=== PATIENT | female | born 1945 | race Caucasian/White ===

== ENCOUNTER → 2017-04-05 | Outpatient (CLI) | payer OTHER | LOC: BHFA 13:00 | PROVIDERS: ATTEND Internal Medicine Cardiovascular Disease | DX: I48.91 Unspecified atrial fibrillation (principal); I48.92 Unspecified atrial flutter ==

== ENCOUNTER → 2017-06-21 | Outpatient (CLI) | payer OTHER | LOC: FCPNEURO 20:00 | PROVIDERS: ATTEND Internal Medicine Sleep Medicine | DX: G47.00 Insomnia, unspecified (principal); G47.36 Sleep related hypoventilation in conditions classified elsewhere ==

== ENCOUNTER 2018-01-15 13:27 | Emergency (ER) | payer OTHER ==
[2018-01-15] MEDS ORDERED: HYDROmorphONE/DILAUDID 1 MG/ML INJ IVP ONE (13:32)
[2018-01-15] MEDS ORDERED: NS 1,000 ML IV ONE (13:32)
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
[2018-01-15 13:43] VITALS: BP 150/67; PULSE 53; RESP 18; TEMP 97.7; O2SAT 96
[2018-01-15] MEDS ORDERED: HYDROmorphONE/DILAUDID 2 MG/ML INJ ONE (14:06)
[2018-01-15 14:11] LABS: PLATELET COUNT 254 10^3/uL (150-400)
[2018-01-15 14:24] LABS: INR 0.98 (0.83-1.16); PROTIME(PATIENT) 13.2 SEC (12.0-15.0)
[2018-01-15] MEDS ORDERED: oxyCODONE IR 5 MG TAB PO ONE ×2 (15:46→16:58)
[2018-01-15] MEDS ORDERED: oxyCODONE IR 5 MG TAB ONE (15:46)
== END 2018-01-15 17:11 | disposition short-term general hospital (02) ==
LOC: EDUNIT#
DX: S72.002A Fracture of unspecified part of neck of left femur, initial encounter for closed fracture (principal); S42.292A Other displaced fracture of upper end of left humerus, initial encounter for closed fracture; E86.9 Volume depletion, unspecified; Z85.3 Personal history of malignant neoplasm of breast; W18.39XA Other fall on same level, initial encounter; Y92.009 Unspecified place in unspecified non-institutional (private) residence as the place of occurrence of the external cause; Y93.39 Activity, other involving climbing, rappelling and jumping off
CPT/HCPCS: 73030; 73502; 96361; 96374; 99285; J1170; G0390; G0480

== ENCOUNTER → 2018-11-09 | Outpatient (CLI) | payer OTHER | LOC: FIMAGING 13:35 | PROVIDERS: ATTEND Registered Nurse | DX: N95.0 Postmenopausal bleeding (principal); D25.9 Leiomyoma of uterus, unspecified ==

== ENCOUNTER → 2018-11-29 | Outpatient (CLI) | payer OTHER | LOC: BHCLAF 11:00 | PROVIDERS: ATTEND Internal Medicine Cardiovascular Disease | DX: G47.34 Idiopathic sleep related nonobstructive alveolar hypoventilation (principal); E78.5 Hyperlipidemia, unspecified | CPT/HCPCS: 93005-PO ==

== ENCOUNTER → 2019-01-02 | Outpatient (CLI) | payer OTHER | LOC: FIMAGING 09:28 | PROVIDERS: ATTEND Internal Medicine | DX: I70.0 Atherosclerosis of aorta (principal); R10.11 Right upper quadrant pain ==